=== PATIENT | male | born 1965 | race Two or more races ===

== ENCOUNTER → 2021-12-17 | Outpatient (CLI) | payer OTHER ==
--- NOTE | 2021-12-17 12:48 | RAD ---
Scrotal ultrasound 12/17/2021 CLINICAL HISTORY: Scrotal pain. TECHNIQUE: Using a combination of real-time ultrasound imaging and color-flow and pulse Doppler imagi ng techniques, duplex evaluation of scrotal sac and its contents was performed. Multiple images were obtained. FINDINGS: Both testicles are within normal limits in size and echogenicity. The right testicle measur es 4.1 x 2.8 x 2.2 cm in longitudinal, transverse, and AP dimensions. The left testicle measures 5.0 x 2.8 x 2.0 cm in size. No focal abnormality of either testicle is seen. Normal color-flow and pulse Doppler imaging to both testicles is noted. A 6 mm cyst is seen within the left epididymal head. The right epididymis is enlarged. Increased colo r flow Doppler to the right epididymis is seen when compared to the left. These findings are consiste nt with epididymitis. There is a small right hydrocele. No varicocele is seen. IMPRESSION: Findings consistent with right epididymitis. Electronically signed by: Corey Diane MD (12/17/2021 12:45 PM) [id number]
== END ==
LOC: US 10:56
PROVIDERS: ATTEND Physician Assistant Medical
DX: N50.3 Cyst of epididymis (principal); N43.3 Hydrocele, unspecified; N50.819 Testicular pain, unspecified
CPT/HCPCS: 76870